=== PATIENT | female | born 1985 | race Hispanic/Latino ===

== ENCOUNTER 2019-09-02 05:27 | Observation (INO) | payer MEDICAID ==
[2019-09-01 18:42] LABS: BASOPHILS % (AUTO) 0.3 % (0.0-5.0); EOSINOPHILS % (AUTO) 0.7 % (0.0-8.0); LYMPHOCYTES % (AUTO) 42.7 % (21.0-51.0); MEAN CORPUSCULAR HEMOGLOBIN 28.3 pg (27.0-33.0); MEAN CORPUSCULAR HGB CONC 32.7 g/dL (32.0-36.0); MEAN CORPUSCULAR VOLUME 86.4 fL (79-99); MONOCYTES % (AUTO) 6.8 % (3.0-13.0); NEUTROPHILS % (AUTO) 49.4 % (40.0-77.0); PLATELET COUNT (AUTO) 254 K/uL (130-400); RED BLOOD CELL COUNT(AUTO) 4.28 MIL/uL (4.00-5.50); RED CELL DISTRIBUTION WIDTH 14.2 % (11.0-15.5); WHITE BLOOD COUNT (AUTO) 6.8 K/uL (4.8-10.8)
[2019-09-01 18:44] VITALS: BP 129/81
[2019-09-02] VITALS (25 sets, daily range): BP systolic 103–147; BP diastolic 51–87
[~2019-09-02] VITALS: Ht 167.6 cm; Wt 94.5 kg
[2019-09-02] MEDS ORDERED: CEFAZOLIN SODIUM 1 GM VIAL ONE (05:48)
[2019-09-02] MEDS ORDERED: LACTATED RINGERS 1000ML 1,000 ML IV ONE (05:48)
--- NOTE | 2019-09-02 06:16 | NUR ---
SX TEDS/SCD APPLIED TO BLE
[2019-09-02] MEDS ORDERED: ACETAMINOPHEN 650 MG SUPPOSITORY RC ONE (07:50)
[2019-09-02] MEDS ORDERED: MIDAZOLAM HCL 1 MG/ML 2ML VIAL ONE (07:51)
[2019-09-02] MEDS ORDERED: PROPOFOL 10 MG/ML 20ML VIAL IV ONE (07:52)
[2019-09-02] MEDS ORDERED: ROCURONIUM 10MG/1ML SYR 10 MG/ML ML ONE (07:52)
[2019-09-02] MEDS ORDERED: LIDOCAINE PF 2% 5ML ABBOJECT ONE (07:52)
[2019-09-02] MEDS ORDERED: KETAMINE 50MG/ML SYRINGE 50 MG/ML DISP.SYRIN IV ONE (07:53)
[2019-09-02] MEDS ORDERED: LACTATED RINGERS 1000ML 1,000 ML IV SCH (08:00)
[2019-09-02] MEDS ORDERED: CEFAZOLIN SODIUM 1 GM VIAL IVP ONE (08:00)
[2019-09-02] MEDS ORDERED: FENTANYL CITRATE PF 50 MCG/1 ML 5ML AMP IV ONE (08:12)
[2019-09-02] MEDS ORDERED: ONDANSETRON HCL 4 MG/2 ML VIAL ONE (08:16)
[2019-09-02] MEDS ORDERED: GLYCOPYRROLATE 1 MG/5 ML SYRINGE ONE (08:48)
[2019-09-02] MEDS ORDERED: NEOSTIGMINE 5MG/5ML SYR IV ONE (08:48)
[2019-09-02] MEDS ORDERED: MEPERIDINE-PF 25 MG/ML SYG ONE ×2 (09:27→09:38)
[2019-09-02] MEDS ORDERED: MEPERIDINE-PF 25 MG/ML SYG IVP PRN (10:30)
[2019-09-02] MEDS ORDERED: BISACODYL 10 MG SUPP.RECT RC PRN (10:30)
[2019-09-02] MEDS ORDERED: ACETAMINOPHEN-CODEINE 300/30MG TAB PO PRN (10:30)
[2019-09-02] MEDS ORDERED: PROMETHAZINE HCL 25 MG/ML 1ML AMPULE IM PRN ×2 (10:30)
[2019-09-02] MEDS ORDERED: MEPERIDINE-PF 50 MG/ML SYG IVP PRN (10:30)
[2019-09-02] MEDS ORDERED: MEPERIDINE-PF 100 MG/ML SYG ONE (11:14)
[2019-09-02] MEDS ORDERED: ONDANSETRON HCL 4 MG/2 ML VIAL IVP PRN (12:00)
--- NOTE | 2019-09-02 12:20 | NUR ---
PATIENT IS RESTING WITH EYES CLOSED. CHEST RISING AND FALLING IN NORMAL PATTERN. NO DISTRESS NOTED. CALL LIGHT IS IN REACH OF PATIENT.
[2019-09-02] MEDS: IBUPROFEN 600 MG TABLET PO PRN (17:32)
[2019-09-02] MEDS: DEXTROSE 5 %-0.45 % NACL 1,000 ML IV SCH (18:26)
[2019-09-02] MEDS: SIMETHICONE 80 MG TAB.CHEW PO PRN (21:03)
[2019-09-02] MEDS: DOCUSATE SODIUM 100 MG CAP PO PRN (21:03)
[2019-09-03] MEDS: DEXTROSE 5 %-0.45 % NACL 1,000 ML IV SCH (01:51)
[2019-09-03 03:49] VITALS: BP 110/69
[2019-09-03] MEDS: IBUPROFEN 600 MG TABLET PO PRN (05:25)
[2019-09-03 05:48] LABS: HEMATOCRIT 34.3 % (36-48); MEAN CORPUSCULAR HEMOGLOBIN 28.2 pg (27.0-33.0); MEAN CORPUSCULAR HGB CONC 32.7 g/dL (32.0-36.0); MEAN CORPUSCULAR VOLUME 86.4 fL (79-99); PLATELET COUNT (AUTO) 231 K/uL (130-400); RED BLOOD CELL COUNT(AUTO) 3.97 MIL/uL (4.00-5.50)
[2019-09-03 07:35] VITALS: BP 137/93
[2019-09-03] MEDS: SIMETHICONE 80 MG TAB.CHEW PO PRN (08:44)
[2019-09-03] MEDS: DOCUSATE SODIUM 100 MG CAP PO PRN (08:44)
--- NOTE | 2019-09-03 09:40 | NUR ---
verbal and written discharge instructions given, prescription given, informed of the follow up appointment, informed to call the doctor for any concerns, pt voiced understanding to all things discussed. Addendum: 09/03/19 at 0951 by LANCE SANTILLAN RN Amended: Links added.
--- NOTE | 2019-09-03 10:20 | NUR ---
pt is dismissed in stable condition, brought to private car via wheelchair by wendy Yuen pcp Addendum: 09/03/19 at 1027 by LANCE SANTILLAN RN Amended: Links added.
== END 2019-09-03 10:20 | disposition home or self-care (01) ==
LOC: DAH 05:27 → WSH 05:28
PROVIDERS: ADMIT Obstetrics & Gynecology; ATTEND Obstetrics & Gynecology
DX: N92.1 Excessive and frequent menstruation with irregular cycle (principal); K46.9 Unspecified abdominal hernia without obstruction or gangrene; Z85.3 Personal history of malignant neoplasm of breast; Z90.12 Acquired absence of left breast and nipple
CPT/HCPCS: 36415 ×2; 58270; 84703; 85025; 85027; 86850; 86900; 86901; 88307; 96372; 96374; A4215; A4221; A4222; A4223; A4351; A4510; A4600; A4606; A4663; A6260; G0378 ×30; J0690; J2001; J2175 ×4; J2250; J2405; J2550; J2704; J2710; J3010; J3490 ×2; J7120 ×2; 96376

== ENCOUNTER 2019-09-10 07:28 | Observation (INO) | payer MEDICAID ==
[2019-09-08 11:52] VITALS: BP 126/78
[2019-09-08 11:57] LABS: BASOPHILS % (AUTO) 0.3 % (0.0-5.0); EOSINOPHILS % (AUTO) 1.6 % (0.0-8.0); HEMATOCRIT 36.7 % (36-48); LYMPHOCYTES % (AUTO) 37.5 % (21.0-51.0); MEAN CORPUSCULAR HEMOGLOBIN 28.3 pg (27.0-33.0); MEAN CORPUSCULAR HGB CONC 32.7 g/dL (32.0-36.0); MEAN CORPUSCULAR VOLUME 86.6 fL (79-99); MONOCYTES % (AUTO) 7.1 % (3.0-13.0); NEUTROPHILS % (AUTO) 53.2 % (40.0-77.0); PLATELET COUNT (AUTO) 281 K/uL (130-400); RED BLOOD CELL COUNT(AUTO) 4.24 MIL/uL (4.00-5.50); RED CELL DISTRIBUTION WIDTH 14.3 % (11.0-15.5); WHITE BLOOD COUNT (AUTO) 5.7 K/uL (4.8-10.8)
[2019-09-08 12:11] LABS: INR 0.95 (0.85-1.15); PARTIAL THROMBOPLASTIN TIME 25.4 SEC (26.3-35.5)
[2019-09-08 12:15] LABS: ALBUMIN 3.9 g/dL (3.5-5.0); BILIRUBIN,TOTAL 0.4 mg/dL (0.2-1.0); CREATININE 0.8 mg/dL (0.5-1.5); POTASSIUM 3.8 mmol/L (3.5-5.1); TOTAL PROTEIN, SERUM 9.1 g/dL (6.0-8.3)
[2019-09-10] VITALS (19 sets, daily range): BP systolic 107–143; BP diastolic 65–85
[~2019-09-10] VITALS: Ht 166.4 cm; Wt 93.4 kg
[~2019-09-10 07:28] MED LIST: ACET-66 PO; SODIUM CHLORIDE 0.9% 500ML 500 ML IV SCH
--- NOTE | 2019-09-10 07:40 | NUR ---
PT HAS SMALL BRUISES TO RT ARM AND HAND FROM PREVIOUS IV STICKS. Addendum: 09/10/19 at 0807 by JOHNSON TITUS RN RN Amended: Links added.
--- NOTE | 2019-09-10 07:52 | NUR ---
TRANSPORTATION TO RADIOLOGY PT TAKEN TO RADIOLOGY VIA BED IN NO DISTRESS BY TRANSPORT
--- NOTE | 2019-09-10 08:05 | NUR ---
ISOTOPE SENTINEL NODE INJECTION OF RIGHT BREAST PROCEDURE PERFORMED BY DR. YING. SUBCUTANEOUS INJECTIONS PLACED TO RIGHT BREAST AT 12 O'CLOCK, 3 O'CLOCK, 6 O'CLOCK, AND 9 O'CLOCK SITE AROUND AREOLA. PATIENT TOLERATED PROCEDURE WELL. END OF PROCEDURE AT 0808. NO BLEEDING NOTED. CALLED REPORT TO BRYCE NAVARRO. PT TRANSPORTED TO DAYPATIENT VIA BED @ 0820. PT STABLE, AAO X 3. NO C/O PAIN.
--- NOTE | 2019-09-10 08:25 | NUR ---
TRANSPORT PT BACK VIA BED FROM RADIOLOGY BY NAJMA. PT IN NO DISTRESS RT BREAST SENTINEL NODE INJECTION DONE. PT HAS ICE PACK TO RT BREAST AND BLUISH DYE NOTED TO BREAST. CALL LIGHT WITH IN REACH
--- NOTE | 2019-09-10 09:00 | NUR ---
NUCLEAR MED PT TAKEN VIA W/C BY RODRIGO FROM NUCLEAR [facility] IN NO DISTRESS.
--- NOTE | 2019-09-10 09:33 | NUR ---
RADIOLOGY PT BACK FROM NUCLEAR MED VIA W/C BY RODRIGO. PT IN NO DISTRESS. PT MADE COMFORTABLE IN ROOM AND PIETER WU NOTIFIED PT DONE WITH RADIOLOGY.
--- NOTE | 2019-09-10 10:22 | NUR ---
TRANSFER PT TAKEN TO NUCLEAR MED VIA W/C BY RODRIGO. PT IN NO DISTRESS.
[2019-09-10] MEDS ORDERED: LACTATED RINGERS 1000ML 1,000 ML IV ONE (10:46)
--- NOTE | 2019-09-10 11:18 | NUR ---
transfer PT BOUGHT BACK FROM RADIOLOGY VIA W/C BY RODRIGO. PT IN NO DISTRESS BACK COMFORTABLE IN BED, CALL LIGHT WITH IN REACH AND BED IN LOW POSITION
[2019-09-10] MEDS: CEFAZOLIN SODIUM 1 GM VIAL IVP SCH ×2 (12:00→12:40)
[2019-09-10] MEDS ORDERED: LIDOCAINE PF 2% 5ML ABBOJECT ONE (12:38)
[2019-09-10] MEDS ORDERED: SUCCINYLCHOLINE 200MG/10ML SYR ONE (12:38)
[2019-09-10] MEDS ORDERED: ROCURONIUM 10MG/1ML SYR 10 MG/ML ML ONE (12:39)
[2019-09-10] MEDS ORDERED: NEOSTIGMINE 5MG/5ML SYR IV ONE (12:39)
[2019-09-10] MEDS ORDERED: PROPOFOL 10 MG/ML 20ML VIAL IV ONE (12:39)
[2019-09-10] MEDS ORDERED: FENTANYL CITRATE PF 50 MCG/1 ML 2ML VIAL ONE ×2 (12:39→16:53)
[2019-09-10] MEDS ORDERED: ONDANSETRON HCL 4 MG/2 ML VIAL ONE (12:39)
[2019-09-10] MEDS ORDERED: MIDAZOLAM HCL 1 MG/ML 2ML VIAL ONE (12:39)
[2019-09-10] MEDS ORDERED: GLYCOPYRROLATE 1 MG/5 ML SYRINGE ONE (12:39)
[2019-09-10] MEDS ORDERED: FENTANYL CITRATE PF 50 MCG/1 ML 5ML AMP IV ONE (12:56)
[2019-09-10] MEDS ORDERED: KETOROLAC TROMETHAMINE 30MG/ML IM PRN (16:15)
[2019-09-10] MEDS ORDERED: ONDANSETRON HCL 4 MG/2 ML VIAL IVP PRN (16:15)
[2019-09-10] MEDS ORDERED: ACETAMINOPHEN-CODEINE 300/30MG TAB PO PRN (16:15)
[2019-09-10] MEDS ORDERED: MORPHINE SULFATE 5 MG/ML VIAL IV PRN (16:15)
[2019-09-10] MEDS ORDERED: HYDROMORPHONE 1 MG/1 ML AMP ONE ×2 (17:08→17:19)
[2019-09-11 03:40] VITALS: BP 112/61
[2019-09-11] MEDS: SODIUM CHLORIDE 0.9% 1000ML 1,000 ML IV SCH ×2 (05:25→07:26)
--- NOTE | 2019-09-11 06:30 | NUR ---
LAB NOTIFIED ABOUT LAB DRAW ON PT'S FOOT BUT WAS TOLD THAT A DOCTORS ORDERS IS REQUIRED. CALLS MADE X [address] ANGUIANO OFFICE # PAGED BUT NO REPLY; ALSO HER CELL PHONE [phone] IS NOT ACCEPTING CALLS AND THE VOICE MAIL WAS FULL.
[2019-09-11 08:19] VITALS: BP 128/79
--- NOTE | 2019-09-11 10:34 | NUR ---
DC Plan Met with patient to discuss dc planning. Research Staff Member in room finishing up [facility] referral. Informed of order from Dr. Raymond for dressing changes by . Patient in agreement to going home with . States used [facility] in the past. Second choice is [facility] and [facility] is 3rd. Signed NITO/Choice Letter. Verified demographic sheet. Obtained physical address- [id number] [place] [address], [id number]. Called [facility], per Marlene, no longer accepting Medicaid. Updated patient. Informed CM will be sending to [facility] (2nd choice). Patient in agreement. Faxed referral to [phone] w/ fax confirmation received at 10:29. Notified Sera at [phone] w/ [facility] of incoming referral. States should be able to accept. CM to continue to follow. CD Addendum: 09/11/19 at 1038 by BRUNA CRUM CM Amended: Links added.
[2019-09-11 17:30] VITALS: BP 157/78
--- NOTE | 2019-09-11 17:55 | NUR ---
DISCHARGE PT LEFT UNIT VIA WHEELCHAIR, ACCOMPANIED BY FIFAVIO. DENIED PAIN AND HAD NO COMPLAINTS. TRANSPORTED BY PERSONAL VEHICLE.
== END 2019-09-11 17:55 | disposition home or self-care (01) ==
LOC: DAH 07:28 → WSH 07:29 → DAH 07:29 → MERGE 07:29 → WSH 17:40
PROVIDERS: ADMIT Student in an Organized Health Care Education/Training Program; ATTEND Student in an Organized Health Care Education/Training Program
DX: C50.611 Malignant neoplasm of axillary tail of right female breast (principal); Z90.12 Acquired absence of left breast and nipple; Z98.51 Tubal ligation status; Z90.710 Acquired absence of both cervix and uterus; Z88.1 Allergy status to other antibiotic agents
CPT/HCPCS: 19307; 36415; 75801; 80053; 84703; 85025; 85610; 85730; A4215; A4221; A4222; A4223; A4510; A4649; A4663; A6260; A6446; A9541; G0378 ×26; J0330; J0690; J1170 ×2; J2001; J2250; J2405; J2704; J2710; J3010 ×3; J3490; J7120

== ENCOUNTER 2019-09-24 07:31 | Day surgery (SDC) | payer MEDICAID ==
[2019-09-23 13:13] VITALS: BP 196/87
[2019-09-23 13:42] VITALS: BP 161/79
[2019-09-24] VITALS (18 sets, daily range): BP systolic 107–165; BP diastolic 57–114
[~2019-09-24] VITALS: Ht 167.6 cm; Wt 94.6 kg
[~2019-09-24 07:31] MED LIST changes: -SODIUM CHLORIDE 0.9% 500ML 500 ML IV SCH
[2019-09-24] MEDS ORDERED: LACTATED RINGERS 1000ML 1,000 ML IV ONE (08:36)
[2019-09-24] MEDS ORDERED: CEFAZOLIN SODIUM 1 GM VIAL ONE (08:36)
--- NOTE | 2019-09-24 08:48 | NUR ---
SKIN HX RIGHT BREAST MASTECTOMY 2 WEEKS AGO. DRESSING TO RIGHT BREAST DRY AND INTACT,PT HAS STERISTRIPS TO INCISION AND GAUZE. SITE ASYMPTOMATIC. NO REDNESS OR DRAINAGE TO SITE. PT HAS VENU WRAP AROUND CHEST AREA Addendum: 09/24/19 at 0849 by BUFFY CHU RN Amended: Links added.
[2019-09-24] MEDS ORDERED: SUCCINYLCHOLINE 200MG/10ML SYR ONE (11:46)
[2019-09-24] MEDS ORDERED: PROPOFOL 10 MG/ML 20ML VIAL IV ONE (11:46)
[2019-09-24] MEDS ORDERED: ONDANSETRON HCL 4 MG/2 ML VIAL ONE ×2 (11:46→13:41)
[2019-09-24] MEDS ORDERED: DEXAMETHASONE SOD PHOSPHATE 10MG/ML 1ML VIAL ONE (11:46)
[2019-09-24] MEDS ORDERED: LIDOCAINE PF 2% 5ML ABBOJECT ONE (11:46)
[2019-09-24] MEDS ORDERED: ROCURONIUM 10MG/1ML SYR 10 MG/ML ML ONE (11:47)
[2019-09-24] MEDS ORDERED: MIDAZOLAM HCL 1 MG/ML 2ML VIAL ONE (11:47)
[2019-09-24] MEDS ORDERED: GLYCOPYRROLATE 1 MG/5 ML SYRINGE ONE (11:47)
[2019-09-24] MEDS ORDERED: NEOSTIGMINE 5MG/5ML SYR IV ONE (11:47)
[2019-09-24] MEDS ORDERED: FENTANYL CITRATE PF 50 MCG/1 ML 2ML VIAL ONE (11:47)
[2019-09-24] MEDS ORDERED: BUPIVACAINE/PF 0.5% 10ML VIAL ONE (12:32)
[2019-09-24] MEDS ORDERED: HEPARIN SODIUM 1000UNIT/ML 10ML VIAL ONE (12:59)
[2019-09-24] MEDS ORDERED: OCTYL 2-CYANOACRYLATE 1 EACH TP ONE (13:04)
[2019-09-24] MEDS ORDERED: MORPHINE SULFATE 4 MG/1ML SYG ONE (13:51)
--- NOTE | 2019-09-24 15:00 | NUR ---
removed 20gauge left calf iv, no concerns.
--- NOTE | 2019-09-24 15:03 | NUR ---
PT POST OP, STABLE NO DISTRESS, GAVE REPORT TO FRANKIE HOLLAND RN , NO CONCERNS.
[2019-09-24] MEDS ORDERED: ACETAMINOPHEN EXTRA STRENGTH 500 MG TABLET ONE (15:12)
[2019-09-24] MEDS ORDERED: ACETAMINOPHEN EXTRA STRENGTH 500 MG TABLET PO ONE (15:30)
--- NOTE | 2019-09-24 16:00 | NUR ---
discharge instructions provided to patient and patient's spouse. follow up appointment provided and handouts provided on portacath placement and care. both patient and spouse verbalized understanding. all questions answered and explained.
--- NOTE | 2019-09-24 16:05 | NUR ---
patient discharged from facility via wheelchair and take to private vehicle driven by patient's spouse.
== END 2019-09-24 16:05 | disposition home or self-care (01) ==
LOC: DAH 07:31
PROVIDERS: ATTEND Student in an Organized Health Care Education/Training Program
DX: C50.412 Malignant neoplasm of upper-outer quadrant of left female breast (principal); Z98.890 Other specified postprocedural states; Z90.49 Acquired absence of other specified parts of digestive tract; Z90.710 Acquired absence of both cervix and uterus; Z83.3 Family history of diabetes mellitus
CPT/HCPCS: 36561; 77001 ×2; A4215; A4221; A4222; A4223; A4606; A4663; A4930; A6207; A6260; C1788; J0330; J0690; J1100; J1644 ×2; J2001; J2250; J2270; J2405 ×2; J2704; J2710; J3010; J3490 ×2; J7120; 77002

== ENCOUNTER 2024-01-22 04:15 | Emergency (ER) | payer MEDICAID, OTHER ==
[~2024-01-22] VITALS: Ht 162.6 cm; Wt 91.6 kg
[2024-01-22] MEDS: ORPHENADRINE 60MG/2ML IM ONE (05:00)
[2024-01-22] MEDS: KETOROLAC 30MG VIAL (30MG/ML) IM ONE (05:24)
[2024-01-22] MEDS: TRIAMCINOLONE ACETONIDE 40 MG/ML 1ML VIAL IM ONE (05:24)
[2024-01-22] MEDS ORDERED: NAPR375T6 PO (06:36)
[2024-01-22] MEDS ORDERED: CYCL7.5T27 PO (06:36)
[2024-01-22 07:04] VITALS: BP 125/68; PULSE 65; RESP 18; O2SAT 98
== END 2024-01-22 07:06 | disposition home or self-care (01) ==
LOC: EDH 04:15
DX: S39.012A Strain of muscle, fascia and tendon of lower back, initial encounter (principal); Z85.3 Personal history of malignant neoplasm of breast; Z88.1 Allergy status to other antibiotic agents; Z90.710 Acquired absence of both cervix and uterus; X58.XXXA Exposure to other specified factors, initial encounter; Y93.89 Activity, other specified; Y92.89 Other specified places as the place of occurrence of the external cause; Y99.8 Other external cause status
CPT/HCPCS: 99284; 81025; 72100; 96372 ×3; J3301; J1885; J2360